=== PATIENT | male | born 1995 | race Caucasian/White ===

== ENCOUNTER 2018-03-17 23:08 | Emergency (ER) | payer MEDICAID ==
[~2018-03-17] VITALS: Ht 172.7 cm; Wt 67.3 kg
[2018-03-17 23:20] VITALS: BP 117/48
--- NOTE | 2018-03-17 23:27 | NUR ---
PT TO ER BED 9
--- NOTE | 2018-03-17 23:27 | NUR ---
PT PRESENTS TO ED WITH SOB AND DYSPNEA X1 HR. PT HAS HX OF ASHTMA. HOME MEDS NOT OFFERING RELIEF. BIB GIRLFRIEND. PEAK FLOW 150. RESPIRATIONS ELEVATED AT 26 WITH 96% O2SAT AT RA. BILAT UPPER LOBE WHEEZING INSPIRATORY/EXPIRATORY. POSITIONED IN BED WITH HOB ELEVATED AT 90 DEGREES. ER MD AWARE. RESPIRATORY CALLED. CONTINUE TO MONITOR.
--- NOTE | 2018-03-17 23:27 | NUR ---
Respiratory Therapist at bedside for respiratory intervention.
[2018-03-17] MEDS ORDERED: predniSONE 20 MG TAB PO ONE (23:30)
[2018-03-17] MEDS ORDERED: IPRATROPIUM 0.02% 0.5 MG/2.5 ML NEBU INH ONE ×2 (23:30→23:35)
[2018-03-17] MEDS ORDERED: ALBUTEROL 0.083% 2.5 MG/3 ML NEBU INH ONE (23:30)
--- NOTE | 2018-03-18 00:10 | NUR ---
REPORTED BY RESPIRATORY, PEAK-LOW NOW 2300. PT STATES FEELING BETTER. VSS. CONTINUE TO MONITOR.
--- NOTE | 2018-03-18 00:12 | NUR ---
PT ESCORTED TO XRAY VIA WHEEL CHAIR.
--- NOTE | 2018-03-18 00:19 | NUR ---
PT RETURN FROM XRAY
[2018-03-18 01:10] VITALS: BP 120/65
--- NOTE | 2018-03-18 01:11 | NUR ---
Note leonardo in EDM - 03/18/18 at 0113 by HANNAH Patient discharged with v/s stable. Written and verbal after care instructions given and explained. Patient alert, oriented and verbalized understanding of instructions. Ambulatory with steady gait. All questions addressed prior to discharge. ID band removed. Patient advised to follow up with PMD. Rx of ADVAIR HFA 230MCG-21MCG/ACTUATION, ALBUTEROL 90MCG/ACTUATION, PREDNISODNE 20MG given. Patient educated on indication of medication including possible reaction and side effects. Opportunity to ask questions provided and answered.
== END 2018-03-18 01:10 | disposition home or self-care (01) ==
LOC: MED 23:08
DX: J45.909 Unspecified asthma, uncomplicated (principal); F17.200 Nicotine dependence, unspecified, uncomplicated; Z90.49 Acquired absence of other specified parts of digestive tract; Z91.010 Allergy to peanuts
CPT/HCPCS: 71046; 94640; 99283; J7512; J7613; J7644